=== PATIENT | female | born 1990 | race Asian ===

== ENCOUNTER 2017-07-07 00:25 | Inpatient (IN) | payer SELFPAY ==
[~2017-07-07] VITALS: Ht 165.1 cm; Wt 65.3 kg
[2017-07-07] MEDS ORDERED: PREN-546 PO (00:41)
[2017-07-07] MEDS ORDERED: FERR-252 PO (00:41)
[2017-07-07] MEDS ORDERED: DOCO100C PO (00:41)
[2017-07-07 00:44] VITALS: BP 111/65
[2017-07-07] MEDS ORDERED: LACTATED RINGERS 1,000 ML IV SCH (00:51)
[2017-07-07] MEDS ORDERED: LACTATED RINGERS 500 ML IV ONE (00:55)
[2017-07-07] MEDS ORDERED: OXYTOCIN 10 UNITS/ML VIAL IM SCH (00:55)
[2017-07-07] MEDS ORDERED: PROMETHAZINE 25 MG/ML VIAL IVP PRN (00:55)
[2017-07-07] MEDS ORDERED: OXYTOCIN 20 UNITS in LACTATED RINGERS 1,000 ML IV SCH (00:55)
[2017-07-07] MEDS ORDERED: MISOPROSTOL 25 MCG TAB VG PRN (00:55)
[2017-07-07 01:37] LABS: APPEARANCE,URINE SL CLOUDY (CLEAR); BILIRUBIN,URINE NEGATIVE (NEGATIVE); BLOOD, URINE 1+ (NEGATIVE); COLOR,URINE YELLOW (YELLOW); LEUKOCYTE ESTERASE ,URINE TRACE (NEGATIVE); NITRITE, URINE NEGATIVE (NEGATIVE); PH,URINE 7.5 (5.0-9.0); UGLUCOSE NEGATIVE (NEGATIVE)
[2017-07-07] MEDS ORDERED: MISOPROSTOL 25 MCG TAB ONE ×2 (01:40→06:04)
[2017-07-07 01:42] LABS: BASOPHILS % (AUTO) 0.5 % (0.0-2.0); EOSINOPHILS # (AUTO) 0.4 K/uL (0-0.4); EOSINOPHILS % (AUTO) 4.6 % (0.0-4.0); HEMATOCRIT 35.9 % (36-48); HEMOGLOBIN 11.9 g/dL (12.0-16.0); LYMPHOCYTES # (AUTO) 2.1 K/uL (2.5-16.5); MEAN CORPUSCULAR HEMOGLOBIN 30 pg (27-31); MEAN CORPUSCULAR HGB CONC 33 g/dL (33-37); MEAN CORPUSCULAR VOLUME 90.5 fL (80-94); MONOCYTES # (AUTO) 0.7 K/uL (0.8-1.0); MONOCYTES % (AUTO) 8.1 % (1.7-9.3); NEUTROPHILS # (AUTO) 5.4 K/uL (1.8-7.7); NEUTROPHILS % (AUTO) 62.8 % (42.2-75.2); PLATELET COUNT (AUTO) 122 K/uL (140-450); RED BLOOD CELL COUNT(AUTO) 3.96 MIL/uL (4.20-5.40); RED CELL DISTRIBUTION WIDTH 13.1 % (11.6-13.7); WHITE BLOOD COUNT (AUTO) 8.7 K/uL (4.8-10.8)
[2017-07-07 01:47] LABS: ANION GAP 14.9 (8-16); CARBON DIOXIDE 24.3 mmol/L (21-32); CREATININE 0.6 mg/dL (0.6-1.3); POTASSIUM 4.2 mmol/L (3.5-5.1)
[2017-07-07 01:52] LABS: TOTAL BILIRUBIN 0.2 mg/dL (0.0-1.0)
[2017-07-07 02:05] LABS: RBC,URINE 3-10 (FEW) /HPF (0-5)
[2017-07-07 02:06] LABS: URINE AMORPHOUS URATE 2+ /HPF (None Seen); WBC,URINE 20-60 /HPF (0-5)
[2017-07-07] MEDS ORDERED: OXYTOCIN 20 UNITS/LR PREMIX 1,000 ML IV ONE (06:42)
[2017-07-07] MEDS ORDERED: BUPIVACAINE 0.125%/NS PREMIX 250 ML ONE (09:09)
--- NOTE | 2017-07-07 09:17 | NUR ---
PATIENT HAS BEEN SCREENED AND CATEGORIZED LOW NUTRITION RISK. PATIENT WILL BE SEEN WITHIN 7 DAYS OF ADMISSION. 07/13/[address]
[2017-07-07] MEDS ORDERED: BUPIVACAINE 0.125%/NS PREMIX 250 ML EPI SCH (09:50)
[2017-07-07] MEDS ORDERED: OXYTOCIN 10 UNITS/ML VIAL ONE (10:19)
[2017-07-07] MEDS ORDERED: OXYTOCIN 10 UNITS/ML VIAL IM PRN (17:30)
[2017-07-07] MEDS ORDERED: IBUPROFEN 800 MG TAB PO PRN (17:30)
[2017-07-07] MEDS ORDERED: METHYLERGONOVINE 0.2 MG/ML AMP IM PRN (17:30)
[2017-07-07] MEDS ORDERED: TEMAZEPAM 15 MG CAP PO PRN (17:30)
[2017-07-07] MEDS ORDERED: oxyCODONE/APAP 5/325 MG 1 TAB TAB PO PRN (17:30)
[2017-07-07] MEDS ORDERED: MEASLES, MUMPS, AND RUBELLA 1 VIAL SQVAC PRN (17:30)
[2017-07-07] MEDS ORDERED: BENZOCAINE/MENTHOL 20%-0.5% 60 GM CAN TP PRN (17:30)
[2017-07-07] MEDS ORDERED: DOCUSATE SOD/SENNA 50/8.6 MG 1 TAB PO SCH (21:00)
[2017-07-08] MEDS: HYDROcodone/APAP 5/325 MG 1 TAB TAB PO PRN ×3 (03:15→20:35)
[2017-07-08 06:46] LABS: HEMATOCRIT 30.2 % (36-48)
[2017-07-09] MEDS ORDERED: IBUP-2213 PO (11:38)
== END 2017-07-09 14:50 | disposition home or self-care (01) | DRG 775 ==
LOC: MLD 00:25 → MFCC 22:00
PROVIDERS: ADMIT Obstetrics & Gynecology; ATTEND Obstetrics & Gynecology
PROC: 10E0XZZ Delivery of Products of Conception, External Approach (ICD-10-PCS; principal; 2017-07-07)
PROC: 0KQM0ZZ Repair Perineum Muscle, Open Approach (ICD-10-PCS; 2017-07-07)
PROC: 3E0R3BZ Introduction of Anesthetic Agent into Spinal Canal, Percutaneous Approach (ICD-10-PCS; 2017-07-07)
PROC: 00HU33Z Insertion of Infusion Device into Spinal Canal, Percutaneous Approach (ICD-10-PCS; 2017-07-07)
PROC: 3E0234Z Introduction of Serum, Toxoid and Vaccine into Muscle, Percutaneous Approach (ICD-10-PCS; 2017-07-07)
DX: O69.1XX0 Labor and delivery complicated by cord around neck, with compression, not applicable or unspecified (principal); O70.1 Second degree perineal laceration during delivery; Z37.0 Single live birth; Z23 Encounter for immunization; Z3A.40 40 weeks gestation of pregnancy
CPT/HCPCS: 36415; 51702; 59200; 80053; 81001; 85018; 85025; 86592; 86886; 86900; 86901; 87086; 90715; J2590; J3490; J7120